=== PATIENT | female | born 1985 | race Caucasian/White ===

== ENCOUNTER 2020-10-21 03:54 | Emergency (ER) | payer BC ==
[~2020-10-21] VITALS: Ht 152.4 cm; Wt 90.7 kg
[2020-10-21] MEDS ORDERED: KETOROLAC TROMETHAMINE 30 MG/ML VIAL IM STA ×2 (04:02→04:11)
[2020-10-21] MEDS ORDERED: KETOROLAC TROMETHAMINE 30 MG/ML VIAL ONE (04:09)
== END 2020-10-21 04:25 | disposition home or self-care (01) ==
LOC: ER 04:05
DX: U07.1 COVID-19 (principal); R51.9 Headache, unspecified; E03.9 Hypothyroidism, unspecified
CPT/HCPCS: 99282; J1885